=== PATIENT | male | born 1965 | race Caucasian/White ===

== ENCOUNTER → 2018-01-14 | Outpatient (CLI) | payer BC ==
[~2018-01-14] MED LIST: ASP325T PO; ASPI-999 PO; CARV3.12 PO; CLOP75TA PO; DLT240CCR PO; IOHEXOL 350 MG/ML 150 ML (OMNIPAQUE 350) VIAL IV ONE; LISI20TA PO; METFOR850T PO; NS 250 ML (IVPB) BAG IV ONE; OMEG-9 PO; ROSU20TA14 PO
[2018-01-14 09:10] LABS: BUN/CREATININE RATIO 15; CREATININE SERUM 1.15 MG/DL (0.60-1.30); GFR ESTIMATED > 60
--- NOTE | 2018-01-14 11:18 | Diagnostic Imaging Report ---
PROCEDURE: CT angiography of the chest with contrast. TECHNIQUE: Multiple contiguous axial images were obtained through the chest after uneventful bolus administration of intravenous contrast. Reconstructed CTA MIP acquisitions were also performed. INDICATION: Aortic valve disease. COMPARISON: Comparison is made with prior CT angio chest from 09/22/2016. FINDINGS: No axillary, hilar, or mediastinal lymphadenopathy is seen. No pericardial or pleural fluid is detected. The pulmonary arterial system is without evidence of thromboembolism. There continues to be some ectasia of the thoracic aorta. The aortic root measurement when measured in the coronal plane is approximately 4.0 cm compared with 4.3 cm on prior exam. The mid ascending aorta measured in the axial plane is 3.9 cm AP x 4.0 cm transverse compared with 4.0 cm AP x 3.8 cm transverse on prior exam. The descending thoracic aorta is approximately 3.6 cm AP compared with 3.5 cm on prior exam. No dissection is identified. Parenchymal evaluation demonstrates the lungs to be clear. No parenchymal mass or nodule is seen. Upper abdomen is unremarkable. IMPRESSION: Overall stable CT angiogram of the chest with stable thoracic aortic ectasia when compared with examination from 09/22/2016. Dictated by: Dictated on workstation # [id number]
--- NOTE | 2018-01-14 11:49 | Diagnostic Imaging Report ---
INDICATION: Aortic valve sclerosis. TECHNIQUE: Axial imaging through the neck was performed after the administration of intravenous contrast and utilizing the CT angiography protocol. Multiplanar, 3D, and MIP reformations were also performed. COMPARISON: No prior studies are available for comparison. FINDINGS: Patient does have a stent in the proximal left subclavian artery which appears to be patent. Both common carotid arteries are widely patent. There is some calcified plaque near the bifurcation on the left, however, proximal internal and external carotid arteries are widely patent. There is some calcified plaque near the bifurcation on the right as well. Both internal carotid arteries appear to be widely patent. No carotid stenosis is identified. The visualized right vertebral artery is unremarkable. The left vertebral artery is very small and difficult to characterize. IMPRESSION: 1. Patent left subclavian stent. 2. No evidence of carotid stenosis. Dictated by: Dictated on workstation # [id number]
== END ==
LOC: RAD 08:36
PROVIDERS: ATTEND Physician Assistant
DX: I77.810 Thoracic aortic ectasia (principal); I65.23 Occlusion and stenosis of bilateral carotid arteries; I10 Essential (primary) hypertension; I73.9 Peripheral vascular disease, unspecified; Z95.5 Presence of coronary angioplasty implant and graft
CPT/HCPCS: 36415; 70498; 71275; 82565; 84520

== ENCOUNTER → 2019-03-30 | Outpatient (CLI) | payer BC ==
[~2019-03-30] VITALS: Ht 175.3 cm; Wt 62.6 kg
[~2019-03-30] MED LIST changes: -IOHEXOL 350 MG/ML 150 ML (OMNIPAQUE 350) VIAL IV ONE; -NS 250 ML (IVPB) BAG IV ONE; +REGADENOSON 0.4 MG/5 ML SYR (LEXISCAN) IV ONE
[2019-03-30] MEDS: CATHETER FLUSH 10 ML SYR IV PRN ×2 (08:39→10:16)
[2019-03-30 10:15] VITALS: BP 138/49
--- NOTE | 2019-03-30 19:18 | STRESS TEST ---
DATE OF SERVICE: 03/30/2019 LEXISCAN MYOVIEW STRESS TEST REPORT REFERRING PHYSICIAN: Micheline Jeffries DO INDICATION: Aortic valve disease. Baseline heart rate is 68. Baseline blood pressure 138/49. Baseline EKG is sinus rhythm with no ischemic changes. SUMMARY: The patient was injected with 10.88 mCi of technetium-99 Myoview and the resting images were obtained. Then, the patient received 0.4 mg of Lexiscan followed by 29.4 mCi of technetium-99 Myoview. Throughout the test, there were no EKG changes. The resting and stress images were reviewed and compared in the short axis, horizontal long axis, and vertical long axis views. Review of the images showed diaphragmatic attenuation with good radiotracer uptake, no significant ischemia or infarction. SSS is 1, SDS 1, TID value 1.18. On the gated images, the left ventricle appeared to be normal size with normal contractility. Calculated ejection fraction 64%. CONCLUSION: 1. The patient tolerated Lexiscan well. 2. Diaphragmatic attenuation with good radiotracer uptake with no significant ischemia or infarction on SPECT images. 3. Normal left ventricular size with normal contractility. Calculated ejection fraction 64%. Job ID: [id number] DocumentID: [id number] Dictated Date: 03/30/2019 15:08:26 Junior Systems Engineer Date: 03/30/2019 19:18:12 Dictated By: LOLY TIRADO MD
== END ==
LOC: CARD 08:10
PROVIDERS: ATTEND Physician Assistant
DX: I35.1 Nonrheumatic aortic (valve) insufficiency (principal); I35.8 Other nonrheumatic aortic valve disorders; I10 Essential (primary) hypertension; R00.2 Palpitations
CPT/HCPCS: 78452; 93017

== ENCOUNTER → 2021-06-04 | Outpatient (CLI) | payer BC ==
[~2021-06-04] MED LIST changes: -REGADENOSON 0.4 MG/5 ML SYR (LEXISCAN) IV ONE
== END ==
LOC: CARD 12:16
PROVIDERS: ATTEND Physician Assistant
DX: I35.1 Nonrheumatic aortic (valve) insufficiency (principal); I10 Essential (primary) hypertension; I25.10 Atherosclerotic heart disease of native coronary artery without angina pectoris
CPT/HCPCS: 93306

== ENCOUNTER 2021-12-13 08:36 | Outpatient (CLI) | payer BC ==
[~2021-12-13] VITALS: Ht 172.7 cm; Wt 65.8 kg
[2021-12-13 09:13] VITALS: BP 155/69
[2021-12-13] MEDS ORDERED: diphenhydrAMINE 50 MG/ML INJ (BENADRYL) IV PRN (09:15)
[2021-12-13] MEDS ORDERED: ACETAMINOPHEN 500 MG TAB (TYLENOL) PO PRN (09:15)
[2021-12-13] MEDS ORDERED: EPINEPHrine INJECTION 1 MG/ML AMP IM PRN (09:15)
[2021-12-13] MEDS ORDERED: CASIRIVIMAB/IMDEVIMAB 1,200 MG in NS (IVPB) 50 ML IV ONE (09:15)
[2021-12-13] MEDS ORDERED: ONDANSETRON 4 MG/2 ML (SDV) Z0FRAN IV PRN (09:15)
[2021-12-13 10:22] VITALS: BP 114/56
== END 2021-12-13 10:21 ==
LOC: INFUSION 08:36
PROVIDERS: ATTEND Family Medicine
DX: U07.1 COVID-19 (principal); E11.9 Type 2 diabetes mellitus without complications

== ENCOUNTER → 2022-08-28 | Outpatient (CLI) | payer OTHER ==
[~2022-08-28] VITALS: Ht 175.3 cm; Wt 68.2 kg
[~2022-08-28] MED LIST changes: +LIDOCAINE 1% INJ 10 ML VIAL INJ ONE
--- NOTE | 2022-08-28 14:46 | Diagnostic Imaging Report ---
INDICATION: Right shoulder pain. Patient presents for right shoulder injection for MRI. Patient brought to the procedure room and placed on the table in supine position. Skin of the right shoulder was prepped and draped in usual sterile fashion. Small amount of 1% lidocaine was utilized for local anesthesia. 22-gauge needle was advanced into the right shoulder at the rotator interval. A 15 mm solution of iodinated contrast, normal saline and gadolinium was injected under fluoroscopic observation. Total of 8 seconds of fluoroscopic time was utilized. Needle was removed and hemostasis was obtained. Patient tolerated the procedure well and was sent to MRI in satisfactory condition. IMPRESSION: Successful right shoulder injection of gadolinium contrast solution, using fluoroscopy. Dictated by: Dictated on workstation # [id number]
--- NOTE | 2022-08-28 15:47 | Diagnostic Imaging Report ---
EXAMINATION: Magnetic resonance imaging of the right shoulder with intra-articular contrast. DATE: August 28, 2022. COMPARISON: Right shoulder arthrogram August 28, 2022. HISTORY: 57-year-old male, right shoulder pain. Injury in June 2022. TECHNIQUE: Magnetic Resonance Imaging sequences were performed of the shoulder following intra-articular administration of contrast. FINDINGS: ROTATOR CUFF, LIGAMENTS, TENDONS AND MUSCLES: The supraspinatus, infraspinatus, teres minor and subscapularis tendons and muscles are intact. There is normal rotator cuff muscle bulk and signal. LONG HEAD OF BICEPS: The biceps labral attachment and long head of the biceps tendon is intact. The long head of the biceps tendon is normally positioned within the bicipital groove. GLENOHUMERAL JOINT: The humeral head is well positioned relative to the glenoid. The labrum is grossly intact. There is no identified paralabral cyst. The articular cartilage is grossly intact. There is no identified intra-articular body or prominent synovitis. ACROMIOCLAVICULAR JOINT: The acromioclavicular joint is normally aligned. The coracoclavicular and coracoacromial ligaments are intact. There are no degenerative changes of the acromioclavicular joint. BONE: There is no os acromiale. There is no Hill-Sachs deformity. There is no acute fracture, bone contusion or evidence of osteonecrosis. BURSAE AND SOFT TISSUES: The bursae and soft tissue surrounding the shoulder are unremarkable. IMPRESSION: 1. Intact labrum and unremarkable additional glenohumeral joint assessment. 2. Intact rotator cuff and proximal long head of biceps tendon. 3. No acute fracture, bone contusion or evidence of osteonecrosis. 4. Intact acromioclavicular joint. 5. Unremarkable MRI arthrogram of the right shoulder. Dictated by: Dictated on workstation # [id number]
== END ==
LOC: RAD 12:45
PROVIDERS: ATTEND Nurse Practitioner Family
DX: M25.511 Pain in right shoulder (principal)
CPT/HCPCS: 23350; 73040; 73222

== ENCOUNTER → 2023-02-10 | Outpatient (CLI) | payer BC ==
[~2023-02-10] MED LIST changes: +CATHETER FLUSH 10 ML SYR IV PRN; +HOLD METFORMIN - RECEIVED CONTRAST 20 ML VIAL IV SCH; +IOHEXOL 350 MG/ML 100 ML (OMNIPAQUE 350) VIAL IV ONE; -LIDOCAINE 1% INJ 10 ML VIAL INJ ONE; +NS 100 ML (IVPB) BAG IV ONE
--- NOTE | 2023-02-10 14:08 | Diagnostic Imaging Report ---
PROCEDURE: CT angiography of the chest with contrast. TECHNIQUE: Multiple contiguous axial images were obtained through the chest after uneventful bolus administration of intravenous contrast. 3D reconstructed CTA MIP acquisitions were also performed. Auto Exposure Controls were utilized during the CT exam to meet ALARA standards for radiation dose reduction. INDICATION: Aortic ectasia, followup. COMPARISON: Correlation is made with the prior CT from 01/14/2018. FINDINGS: Evaluation of the pulmonary arterial system is without evidence of thromboemboli. There is some dilatation of the ascending thoracic aorta measuring approximately 4.3 cm AP compared with 3.9 cm on prior exam. Aortic arch is of normal caliber. There is some ectasia of the descending thoracic aorta measuring 3.4 cm compared with 3.6 cm on prior. No dissection is seen. Patient does have a left subclavian artery stent proximally. There is no pericardial or pleural fluid identified. No pulmonary infiltrates, nodules, or masses are detected. Upper abdomen is unremarkable. IMPRESSION: Stable to perhaps slight increase in size of the ascending thoracic aorta when compared with the prior study from 2018. There is no dissection. No other significant abnormality is seen. Dictated by: Dictated on workstation # [id number]
== END ==
LOC: RAD 11:45
PROVIDERS: ATTEND Internal Medicine Cardiovascular Disease
DX: I10 Essential (primary) hypertension (principal); I25.10 Atherosclerotic heart disease of native coronary artery without angina pectoris
CPT/HCPCS: 71275